=== PATIENT | male | born 2000 | race Caucasian/White ===

== ENCOUNTER 2023-03-23 11:15 | Emergency (ER) | payer OTHER ==
[~2023-03-23] VITALS: Ht 175.3 cm; Wt 56.8 kg
[2023-03-23 11:35] VITALS: BP 136/88
[2023-03-23] MEDS ORDERED: ACETAMINOPHEN 325MG TABLET PO STA (12:23)
[2023-03-23] MEDS ORDERED: NAPR-681 PO (13:34)
== END 2023-03-23 14:15 | disposition home or self-care (01) ==
LOC: ER 11:15
DX: M94.0 Chondrocostal junction syndrome [Tietze] (principal)
CPT/HCPCS: 71045; 93005; 99283

== ENCOUNTER 2023-03-24 16:50 | Emergency (ER) | payer OTHER ==
[~2023-03-24] VITALS: Ht 175.3 cm; Wt 57.0 kg
[~2023-03-24 16:50] MED LIST: NAPR-681 PO
[2023-03-24 18:15] VITALS: BP 134/80
== END 2023-03-24 19:02 | disposition home or self-care (01) ==
LOC: ER 16:50
DX: R06.02 Shortness of breath (principal); F41.9 Anxiety disorder, unspecified; Z88.0 Allergy status to penicillin
CPT/HCPCS: 99281

== ENCOUNTER 2023-04-08 17:37 | Emergency (ER) | payer OTHER ==
[~2023-04-08] VITALS: Ht 175.3 cm; Wt 56.8 kg
[2023-04-08 18:00] VITALS: BP 121/83; PULSE 106; RESP 20; TEMP 98.9; O2SAT 100
== END 2023-04-08 23:25 | disposition left against medical advice (07) ==
LOC: ER 17:37
DX: Z53.21 Procedure and treatment not carried out due to patient leaving prior to being seen by health care provider (principal)
CPT/HCPCS: 99281

== ENCOUNTER 2024-10-19 22:45 | Emergency (ER) | payer MEDICAID, OTHER ==
[~2024-10-19] VITALS: Ht 175.3 cm; Wt 57.0 kg
[2024-10-19 23:00] VITALS: O2SAT 98
[2024-10-19 23:19] VITALS: BP 134/74; PULSE 71; RESP 18; TEMP 98.4; O2SAT 99
== END 2024-10-20 00:35 | disposition home or self-care (01) ==
LOC: ER 22:45
DX: R09.81 Nasal congestion (principal); Z88.0 Allergy status to penicillin
CPT/HCPCS: 99281